=== PATIENT | male | born 1955 | race Caucasian/White ===

== ENCOUNTER 2016-04-24 11:23 | Emergency (ER) | payer BC ==
[~2016-04-24] VITALS: Ht 172.7 cm; Wt 81.6 kg
[2016-04-24 11:30] VITALS: BP 120/79; PULSE 73; RESP 20; TEMP 98.2; O2SAT 99
--- NOTE | 2016-04-24 11:39 | NUR ---
Pt placed to ER bed 8 and gown. Pt report given to ANA Coronado and Dr. Hansen.
[2016-04-24 12:22] VITALS: BP 122/79; PULSE 78; RESP 16; O2SAT 98
--- NOTE | 2016-04-24 12:24 | NUR ---
Patient given written and verbal discharge instructions and verbalizes understanding. ER MD discussed with patient the results and treatment provided. Given copies of tests performed in ER. Patient in stable condition. ID arm band removed.Patient educated on pain management and to follow up with PMD. Pain Scale [0]. Opportunity for questions provided and answered.
== END 2016-04-24 12:22 | disposition home or self-care (01) ==
LOC: SED 11:23
DX: Z00.8 Encounter for other general examination (principal)
CPT/HCPCS: 71010; 93005; 99284

== ENCOUNTER 2016-04-26 07:22 | Day surgery (SDC) | payer BC ==
[~2016-04-26] VITALS: Ht 172.7 cm; Wt 81.6 kg
[2016-04-26] MEDS ORDERED: LR 1,000 ML IV ONE (09:23)
[2016-04-26] MEDS ORDERED: NALBUPHINE HCL 10 MG/ML AMP IVP PRN (09:30)
[2016-04-26] MEDS ORDERED: DIPHENHYDRAMINE INJ 50 MG/ML VIAL IVP PRN (09:30)
[2016-04-26] MEDS ORDERED: ePHEDrine sulfate 50 MG/ML VIAL IVP PRN (09:30)
[2016-04-26] MEDS ORDERED: ONDANSETRON HCL 4 MG/2 ML VIAL IVP PRN ×3 (09:30→11:00)
[2016-04-26] MEDS ORDERED: fentaNYL CITRATE/PF 100 MCG/2 ML AMP IVP PRN (09:30)
[2016-04-26] MEDS ORDERED: NALOXONE HCL 0.4 MG/ML AMP (NARCAN) IVP PRN (09:30)
[2016-04-26] MEDS ORDERED: POLYMYXIN 500,000/BACIT.10,000 UNITS in NS IRR 1 L IR ONE (09:50)
[2016-04-26] MEDS ORDERED: NACL 0.9% 1,000 ML IV SCH (10:51)
[2016-04-26] MEDS ORDERED: HYDROmorphone 1 MG INJ. 1 MG/ML AMPUL IVP PRN (11:00)
[2016-04-26 11:36] VITALS: BP_SYST 143
[2016-04-26] MEDS ORDERED: SEVOFLURANE 15 MIN GAS INH ONE (14:00)
[2016-04-26] MEDS ORDERED: LR 1,000 ML IV.SOLN IV ONE (14:00)
[2016-04-26] MEDS ORDERED: fentaNYL CITRATE 250 MCG/5 ML AMP ONE (14:00)
[2016-04-26] MEDS ORDERED: CEFAZOLIN 2 GM IVPB PREMIX 50 ML IV ONE (14:00)
[2016-04-26] MEDS ORDERED: KETOROLAC TROMETHAMINE 30 MG VIAL ONE (14:00)
[2016-04-26] MEDS ORDERED: MIDAZOLAM HCL 5 MG/5 ML VIAL ONE (14:00)
[2016-04-26] MEDS ORDERED: METOCLOPRAMIDE HCL 10 MG/2 ML VIAL ONE (14:00)
[2016-04-26] MEDS ORDERED: PROPOFOL 200MG/ 20ML VIAL (DIPRIVAN) IV ONE (14:00)
== END 2016-04-26 12:23 | disposition home or self-care (01) ==
LOC: SDS 07:22 → SMU 07:43 → SDS 12:23
PROVIDERS: ATTEND Surgery
DX: K40.90 Unilateral inguinal hernia, without obstruction or gangrene, not specified as recurrent (principal); D17.1 Benign lipomatous neoplasm of skin and subcutaneous tissue of trunk; E78.00 Pure hypercholesterolemia, unspecified; Z87.891 Personal history of nicotine dependence
CPT/HCPCS: 11404; 49505; 88302; 88304; 88333; C1781; J0690; J1885; J2250; J2704; J2765; J3010; J7120